=== PATIENT | male | born 2000 | race Caucasian/White ===

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

== ENCOUNTER 2020-02-24 10:23 | Emergency (ER) | payer SELFPAY ==
[~2020-02-24] VITALS: Ht 167.6 cm; Wt 59.1 kg
[~2020-02-24 10:23] MED LIST changes: +BACTRIM DS 8001 TAB PO
[2020-02-24 10:33] VITALS: BP 164/111; TEMP 97.8
[2020-02-24] MEDS ORDERED: CEPHALEXIN500 M1 PO (13:11)
[2020-02-24 13:33] VITALS: PULSE 80
== END 2020-02-24 13:33 | disposition home or self-care (01) ==
LOC: COL.ER 10:23
DX: S63.502A Unspecified sprain of left wrist, initial encounter (principal); S50.312A Abrasion of left elbow, initial encounter; S60.512A Abrasion of left hand, initial encounter; V29.9XXA Motorcycle rider (driver) (passenger) injured in unspecified traffic accident, initial encounter; Y92.009 Unspecified place in unspecified non-institutional (private) residence as the place of occurrence of the external cause

== ENCOUNTER 2020-04-13 18:49 | Emergency (ER) | payer SELFPAY ==
[~2020-04-13] VITALS: Ht 167.6 cm; Wt 54.5 kg
[~2020-04-13 18:49] MED LIST changes: +CEPHALEXIN500 M1 PO
[2020-04-13 18:57] VITALS: TEMP 98.7
[2020-04-13 19:34] LABS: HEMATOCRIT 48.8 % (36.0-47.0); MEAN CELL VOLUME 87 fl (80.0-95.0); MEAN CORPUSCULAR HEMOGLOBIN 32 pg (26.0-32.0); MEAN CORPUSCULAR HGB CONC 37 g/dl (33.0-37.0); MEAN PLATELET VOLUME 8.7 fl (7.4-10.4); PLATELET COUNT 382 K/mm3 (130-400); RED BLOOD COUNT 5.61 M/mm3 (4.20-5.60); REDCELL DISTRIBUTION WIDTH-CV 11.5 % (11.5-14.5)
[2020-04-13 19:47] LABS: ALANINE AMINOTRANSFERASE 18 U/L (4-49); ALBUMIN 5.3 gm/dL (3.5-5.0); ALKALINE PHOSPHATASE 89 U/L (50-136); ANION GAP 16 mmol/L (7-16); AST,SGOT 35 U/L (15-37); BILIRUBIN,TOTAL 2.3 mg/dL (0.0-1.0); BLOOD UREA NITROGEN 18 mg/dL (9-20); CARBON DIOXIDE 26 mmol/L (22-30); CHLORIDE 98 mmol/L (98-107); CREATININE, serum 1.64 (0.66-1.25); GLUCOSE 158 mg/dL (74-106); POTASSIUM 3.8 mmol/L (3.4-5.0); SODIUM 141 mmol/L (137-145); TOTAL PROTEIN 9.1 gm/dL (6.4-8.2)
[2020-04-13 19:54] LABS: ACETAMINOPHEN < 10 ug/mL (10-30); ALCOHOL(ethanol),MEDICAL < 10 mg/dL; SALICYLATE < 1.0 mg/dL
[2020-04-13 20:01] LABS: BAND 7 % (0-10); LYMPHOCYTE 6 % (20.0-51.0); NEUTROPHILS 77 % (42.0-75.2)
[2020-04-13 20:02] LABS: PLATELET ESTIMATE NORMAL (NORMAL)
[2020-04-13 20:14] LABS: COLLECTION METHOD CLEAN CATCH
[2020-04-13 20:23] LABS: MUCOUS Present /lpf; PH 5 (5-8); SQUAMOUS EPITHELIAL 0-2 /hpf; URINE APPEARANCE Hazy; URINE BACTERIA Rare /hpf; URINE BILIRUBIN Negative (NEGATIVE); URINE BLOOD 1+ (NEGATIVE); URINE COLOR Amber; URINE GLUCOSE Negative (NEGATIVE); URINE KETONE Trace (NEGATIVE); URINE LEUKOCYTE ESTERASE Negative (NEGATIVE); URINE NITRATE Negative (NEGATIVE); URINE PROTEIN(semi-quant) 2+ (NEGATIVE); URINE RBC 0-2 /hpf; URINE UROBILINOGEN Negative (NEGATIVE)
[2020-04-13 20:33] LABS: TRICYCLIC ANTIDEPRESS URINE NEGATIVE
[2020-04-13 23:30] VITALS: BP 121/83; PULSE 78
== END 2020-04-13 23:30 | disposition home or self-care (01) ==
LOC: COL.ER 18:49
PROVIDERS: Emergency Medicine
DX: R45.851 Suicidal ideations (principal); F19.10 Other psychoactive substance abuse, uncomplicated; F17.200 Nicotine dependence, unspecified, uncomplicated; Z88.6 Allergy status to analgesic agent
CPT/HCPCS: J7030

== ENCOUNTER 2021-12-19 14:09 | Emergency (ER) | payer SELFPAY ==
[~2021-12-19] VITALS: Ht 167.6 cm; Wt 77.3 kg
[2021-12-19 14:16] VITALS: TEMP 98.1
[2021-12-19] MEDS ORDERED: DOXYCYCLINE HY100 MG PO (14:58)
[2021-12-19 15:10] VITALS: BP 119/76; PULSE 64
== END 2021-12-19 15:12 | disposition home or self-care (01) ==
LOC: COL.ER 14:09
DX: I89.1 Lymphangitis (principal); Z28.310 Unvaccinated for COVID-19

== ENCOUNTER 2022-02-23 16:23 | Emergency (ER) | payer SELFPAY ==
[~2022-02-23] VITALS: Ht 170.2 cm; Wt 77.3 kg
[~2022-02-23 16:23] MED LIST changes: +DOXYCYCLINE HY100 MG PO
[2022-02-23 16:45] VITALS: BP 132/82; TEMP 98.1
[2022-02-23] MEDS ORDERED: TRIAMCINOLONE A15 GM TP (17:14)
[2022-02-23 17:21] VITALS: PULSE 75
== END 2022-02-23 17:21 | disposition home or self-care (01) ==
LOC: COL.ER 16:23
DX: L25.9 Unspecified contact dermatitis, unspecified cause (principal); F17.290 Nicotine dependence, other tobacco product, uncomplicated; Z28.310 Unvaccinated for COVID-19